=== PATIENT | male | born 1995 | race Two or more races ===

== ENCOUNTER 2019-10-11 08:47 | Inpatient (IN) | payer MEDICAID, OTHER ==
[~2019-10-11] VITALS: Ht 182.9 cm; Wt 80.3 kg
[2019-10-11] MEDS ORDERED: DOXYCYCLINE 100 MG TAB/CAP PO ONE (10:00)
[2019-10-11] MEDS ORDERED: DexAMETHasone SOD PHOS 10MG/1ML VIAL INJ IM ONE (10:00)
[2019-10-11 10:48] LABS: Basophils # (auto) 0.1 10 ^3/uL (0-0.2); Basophils % (auto) 0.7 % (0.0-2.0); Eosinophils # (auto) 0 10 ^3/uL (0-0.8); Hematocrit 41.5 % (41.0-53.0); Hemoglobin 13.2 g/dL (13.5-17.5); Lymphocytes # (auto) 0.5 10 ^3/uL (0.4-5.4); Lymphocytes % (auto) 4.8 % (10.0-50.0); Mean Corpuscular Hemoglobin 27.6 pg (28.0-32.0); Mean Corpuscular Hgb Conc. 31.7 g/dL (32.0-36.0); Monocytes # (auto) 0.7 10 ^3/uL (0-1.3); Monocytes % (auto) 7.2 % (0.0-12.0); Neutrophils # (auto) 8.9 10 ^3/uL (1.6-8.6); Neutrophils % (auto) 87.3 % (37.0-80.0); Nucleated Red Blood Cells % 0.1 %; Platelet Count (auto) 444 10^3/uL (140-450); Red Blood Cells 4.77 10^6/uL (4.5-5.90); Red Cell Distribution Width 14.5 % (11.8-14.3); White Blood Cell 10.2 10^3/uL (4.4-10.8)
[2019-10-11 11:05] LABS: Albumin 3.6 g/dL (3.4-5.0); Calcium 9.9 mg/dL (8.5-10.1); Potassium 4.1 mmol/L (3.5-5.1)
[2019-10-11 11:09] LABS: BUN/Creatinine Ratio 10.5; Bilirubin, Total 0.4 mg/dL (0.2-1.0); Total Protein 8.6 g/dL (6.4-8.2)
[2019-10-11] MEDS ORDERED: InsuLIN R (HUMAN) 100 UNITS in SODIUM CHL 0.9% 99 ML IV SCH ×2 (11:36→18:30)
[2019-10-11] MEDS ORDERED: INSULIN LANTUS (GLARGINE) 1 /0.01ml (100units/ml) SC ONE (11:45)
[2019-10-11] MEDS ORDERED: DEXTROSE (50%) 50ML SYRG IV PRN ×3 (11:45→18:15)
[2019-10-11 13:27] LABS: Magnesium 2.8 mg/dL (1.6-2.6); Phosphorus 4.8 mg/dL (2.5-4.90)
[2019-10-11] MEDS: ACCU-CHEK COMFORT CURVE STRIP VI SCH ×8 (13:30→23:20)
[2019-10-11] MEDS ORDERED: SODIUM CHLORIDE 0.9% 1,000 ML IV SCH (15:36)
[2019-10-11] MEDS ORDERED: cefTRIAXone 1GM/50ML D5W 50 ML IV ONE ×2 (16:30→16:45)
[2019-10-11] MEDS ORDERED: NITROGLYCERIN 0.4 MG SL TAB SL PRN (16:45)
[2019-10-11] MEDS ORDERED: PROMETHAZINE HCL 25 MG/ML 1ML IV PRN (16:45)
[2019-10-11] MEDS ORDERED: traMADol HCL 50 MG TAB PO PRN (16:45)
[2019-10-11] MEDS ORDERED: MORPHINE SULF INJ 2 MG/ML SYRINGE 1ML IV PRN (16:45)
[2019-10-11] MEDS: SODIUM CHLORIDE 0.9% 1,000 ML IV SCH ×4 (16:51→17:06)
[2019-10-11 20:54] LABS: Urine WBC None Seen /hpf (0 - 3)
[2019-10-11 21:07] LABS: Urine Bacteria NONE SEEN /hpf (None Seen); Urine Blood Negative /uL (Negative); Urine Hyaline Cast FEW /lpf (0 - 2); Urine Specific Gravity 1.018 (1.001-1.035)
[2019-10-11 21:30] LABS: Amphetamine Screen, Urine NEGATIVE (NEGATIVE); Barbiturate Scree,Urine NEGATIVE (NEGATIVE); Benzodiazephine Screen, Urine NEGATIVE (NEGATIVE); Cannabinoid Screen, Urine NEGATIVE (NEGATIVE); Cocaine Screen, Urine NEGATIVE (NEGATIVE); Opiate Scree,Urine NEGATIVE (NEGATIVE); Phencyclidine Screen, Urine NEGATIVE (NEGATIVE)
[2019-10-12] MEDS: ACCU-CHEK COMFORT CURVE STRIP VI SCH ×12 (00:22→20:15)
[2019-10-12] MEDS: SODIUM CHLORIDE 0.9% 1,000 ML IV SCH ×4 (00:22→16:40)
[2019-10-12 05:38] LABS: Potassium 3.8 mmol/L (3.5-5.1)
[2019-10-12 05:43] LABS: BUN/Creatinine Ratio 15.8; Calcium 8.5 mg/dL (8.5-10.1)
[2019-10-12 06:47] LABS: Basophils # (auto) 0.1 10 ^3/uL (0-0.2); Basophils % (auto) 0.5 % (0.0-2.0); Eosinophils # (auto) 0 10 ^3/uL (0-0.8); Hematocrit 35.8 % (41.0-53.0); Hemoglobin 11.9 g/dL (13.5-17.5); Lymphocytes # (auto) 1.8 10 ^3/uL (0.4-5.4); Lymphocytes % (auto) 14.3 % (10.0-50.0); Mean Corpuscular Hemoglobin 28.4 pg (28.0-32.0); Mean Corpuscular Hgb Conc. 33.2 g/dL (32.0-36.0); Mean Corpuscular Volume 85.7 fL (80.0-100.0); Monocytes # (auto) 1.5 10 ^3/uL (0-1.3); Monocytes % (auto) 11.6 % (0.0-12.0); Neutrophils # (auto) 9.4 10 ^3/uL (1.6-8.6); Neutrophils % (auto) 73.6 % (37.0-80.0); Nucleated Red Blood Cells % 0.1 %; Platelet Count (auto) 392 10^3/uL (140-450); Red Blood Cells 4.18 10^6/uL (4.5-5.90); White Blood Cell 12.8 10^3/uL (4.4-10.8)
[2019-10-12 07:45] LABS: Albumin 2.9 g/dL (3.4-5.0); Amylase 33 U/L (25-115); BUN/Creatinine Ratio 14.4; Calcium 8.6 mg/dL (8.5-10.1); Lipase 39 U/L (73-393)
[2019-10-12 07:48] LABS: Bilirubin, Total 0.2 mg/dL (0.2-1.0); HDL Cholesterol 43 mg/dL (40-59); LDL Cholesterol 152 mg/dL (< 100); Total Protein 7.2 g/dL (6.4-8.2); Triglycerides 249 mg/dL (< 150)
[2019-10-12 07:55] LABS: Cholesterol 233 mg/dL (< 200)
[2019-10-12] MEDS ORDERED: INSULIN LANTUS (GLARGINE) 1 /0.01ml (100units/ml) SC SCH (10:00)
[2019-10-12] MEDS: cefTRIAXone 1GM/50ML D5W 50 ML IV SCH (11:00)
[2019-10-12] MEDS: PANTOPRAZOLE 40 MG TAB PO SCH (11:01)
[2019-10-12] MEDS: ENOXAPARIN SOD 40 MG/0.4 ML SYRINGE SC SCH (11:02)
--- NOTE | 2019-10-12 11:43 | NUR ---
Pt Arrived on Unit Pt arrived on unit from ED. Pt brought to floor via wheelchair and was able to ambulate to bed with no difficulty. Pt is a/ox4 with no s/s of distress or SOB. Safety measures initiated with call light within reach, bed in lowest position and side rails up. Will continue to monitor.
[2019-10-12 12:04] VITALS: BP 139/85
[2019-10-12] MEDS ORDERED: INSLANTI SC (12:13)
[2019-10-12] MEDS ORDERED: INSLISPI SC (12:13)
[2019-10-12 13:00] VITALS: BP 139/85
[2019-10-12 14:03] VITALS: BP 139/85
--- NOTE | 2019-10-12 16:08 | NUR ---
Elevated Blood Sugar BS of 414 assessed. Rechecked BS, 427. Paged regarding elevated BS levels. Pt is currently asymptomatic at this time. Will continue to monitor. Addendum: 10/12/19 at 1611 by BALDEMAR LARIOS RN RN paged back. Made aware, stated he would input new orders. Will continue to monitor.
[2019-10-12] MEDS ORDERED: InsuLIN REG 1unit/0.01ml Soln (100units/ml) IV ONE (16:15)
[2019-10-12] MEDS ORDERED: INSULIN LANTUS (GLARGINE) 1 /0.01ml (100units/ml) SC ONE (16:15)
[2019-10-12] MEDS ORDERED: DEXTROSE (50%) 50ML SYRG IV PRN (16:15)
[2019-10-12 17:41] VITALS: BP 129/81
--- NOTE | 2019-10-12 19:15 | NUR ---
Opening shift note Assumed care of patient who is A&OX4. Respirations even and non-labored with no s/s of distress. Discussed POC with patient who verbalized understanding. Bed in lowest locked position with 2 side rails up. Call light within reach. Will continue to monitor.
[2019-10-12] MEDS: InsuLIN REG 1unit/0.01ml Soln (100units/ml) SC SCH (20:18)
--- NOTE | 2019-10-12 20:50 | NUR ---
Received call from patients family Mother of patient, Alona, called with questions regarding her sons release from the hospital.
[2019-10-12] MEDS: ACETAMINOPHEN 500 MG TAB PO PRN (21:38)
--- NOTE | 2019-10-12 21:47 | NUR ---
Patient temp. 101.8 Administered Tylenol per EMAR. Will continue to monitor.
[2019-10-12 22:00] VITALS: BP 133/88
[2019-10-12] MEDS: BUDESONIDE (INHALATION) 0.5 MG/2 ML NEB NEB SCH (22:50)
[2019-10-12] MEDS: INSULIN LANTUS (GLARGINE) 1 /0.01ml (100units/ml) SC SCH (22:59)
--- NOTE | 2019-10-12 23:30 | NUR ---
Temperature check 100.5
[2019-10-13] MEDS: ACCU-CHEK COMFORT CURVE STRIP VI SCH ×7 (00:09→22:59)
[2019-10-13] MEDS: SODIUM CHLORIDE 0.9% 1,000 ML IV SCH ×3 (00:19→17:10)
[2019-10-13] MEDS: InsuLIN REG 1unit/0.01ml Soln (100units/ml) SC SCH ×6 (04:00→20:26)
--- NOTE | 2019-10-13 05:00 | NUR ---
Temperature check 99.1. Patient resting without s/s of distress. Will continue to monitor.
[2019-10-13] MEDS: INSULIN LANTUS (GLARGINE) 1 /0.01ml (100units/ml) SC SCH ×2 (06:38→23:04)
--- NOTE | 2019-10-13 07:03 | NUR ---
Closing shift note Patient resting, respirations even and non-labored without s/s of distress. Endorsed care to day RNBryce.
[2019-10-13 07:12] VITALS: BP 138/76
[2019-10-13] MEDS: BUDESONIDE (INHALATION) 0.5 MG/2 ML NEB NEB SCH ×2 (07:58→22:10)
--- NOTE | 2019-10-13 07:58 | NUR ---
RT NOTE: PULMICORT TX HELD DUE TO PT NOT BEING IN NEGATIVE PRESSURE ROOM. WILL CONTINUE TO MONITOR.
[2019-10-13 08:00] VITALS: BP 148/86
[2019-10-13 09:00] VITALS: BP 148/86
[2019-10-13] MEDS: cefTRIAXone 1GM/50ML D5W 50 ML IV SCH (09:01)
[2019-10-13] MEDS: PANTOPRAZOLE 40 MG TAB PO SCH (09:01)
[2019-10-13] MEDS: ENOXAPARIN SOD 40 MG/0.4 ML SYRINGE SC SCH (09:02)
[2019-10-13 13:00] VITALS: BP 136/84
[2019-10-13 14:50] LABS: Basophils # (auto) 0.1 10 ^3/uL (0-0.2); Basophils % (auto) 0.7 % (0.0-2.0); Eosinophils # (auto) 0 10 ^3/uL (0-0.8); Eosinophils % (auto) 0.1 % (0.0-7.0); Hematocrit 35.3 % (41.0-53.0); Hemoglobin 11.7 g/dL (13.5-17.5); Lymphocytes # (auto) 1.3 10 ^3/uL (0.4-5.4); Lymphocytes % (auto) 14.1 % (10.0-50.0); Mean Corpuscular Hemoglobin 28.4 pg (28.0-32.0); Mean Corpuscular Hgb Conc. 33.2 g/dL (32.0-36.0); Mean Corpuscular Volume 85.5 fL (80.0-100.0); Monocytes % (auto) 10.8 % (0.0-12.0); Neutrophils # (auto) 6.9 10 ^3/uL (1.6-8.6); Neutrophils % (auto) 74.3 % (37.0-80.0); Platelet Count (auto) 338 10^3/uL (140-450); Red Blood Cells 4.12 10^6/uL (4.5-5.90); Red Cell Distribution Width 14.3 % (11.8-14.3); White Blood Cell 9.3 10^3/uL (4.4-10.8)
--- NOTE | 2019-10-13 16:28 | NUR ---
PT REQUESTING BLOOD SUGAR CHECK UPON ASSESSMENT PT IS ALERT AND ORIENTED X4. WHEN ASKED WHAT SYMPTOMS PATIENT IS HAVING PT STATES "I FEEL REALLY WEAK". BLOOD GLUCOSE RESULTS 58. PT GIVEN TWO JUICES AND WILDER CRACKERS. RN WILL REASSESS BLOOD SUGAR IN 15 MINUTES.
[2019-10-13 17:00] VITALS: BP 144/85
--- NOTE | 2019-10-13 19:25 | NUR ---
Opening shift note Assumed care of patient who is A&Ox4 sitting up finishing dinner with no s/s of distress or SOB. Discussed POC with patient who verbalized understanding. Bed in lowest locked position with 2 side rails up, call light within reach, will continue to monitor.
[2019-10-13] MEDS: ACETAMINOPHEN 500 MG TAB PO PRN (21:10)
--- NOTE | 2019-10-13 21:15 | NUR ---
TEMPERATURE 100.9 Administered Tylenol per EMAR. Will continue to monitor.
[2019-10-13 22:00] VITALS: BP 144/82
--- NOTE | 2019-10-13 22:20 | NUR ---
TEMP. CHECK 99.1 Patient without c/o pain or discomfort at this time, will continue to monitor.
[2019-10-14] MEDS: SODIUM CHLORIDE 0.9% 1,000 ML IV SCH ×2 (03:05→08:27)
[2019-10-14] MEDS: InsuLIN REG 1unit/0.01ml Soln (100units/ml) SC SCH ×4 (04:00→12:00)
[2019-10-14] MEDS: ACCU-CHEK COMFORT CURVE STRIP VI SCH ×3 (04:18→12:00)
[2019-10-14 05:20] VITALS: BP 120/50
[2019-10-14] MEDS: INSULIN LANTUS (GLARGINE) 1 /0.01ml (100units/ml) SC SCH (06:23)
[2019-10-14 08:00] VITALS: BP 151/79
[2019-10-14] MEDS: cefTRIAXone 1GM/50ML D5W 50 ML IV SCH (08:27)
[2019-10-14] MEDS: PANTOPRAZOLE 40 MG TAB PO SCH (09:27)
[2019-10-14] MEDS: ENOXAPARIN SOD 40 MG/0.4 ML SYRINGE SC SCH (09:28)
[2019-10-14 09:40] VITALS: BP 151/79
--- NOTE | 2019-10-14 12:28 | NUR ---
Est energy needs [id number] kcal (25-27 kcal/kg 80.3kg) Est protein needs 48-60g (0.6-0.75g/kg 80.3kg, elevated RFTs, diabetic nephropathy no HD) Will reassess prn. Addendum: 10/14/19 at [address] Amended: Links added.
[2019-10-14 12:45] VITALS: BP 151/87
[2019-10-14] MEDS ORDERED: ZINC SULFATE 220mg CAP or TAB PO ONE (13:15)
[2019-10-14] MEDS ORDERED: CHOLECALCIFEROL (VITD3) 1,000UNIT=25mCg TAB PO ONE (13:15)
[2019-10-14] MEDS ORDERED: DEXTROSE (50%) 50ML SYRG IV PRN (13:15)
[2019-10-14] MEDS ORDERED: DOXYCYCLINE 100 MG TAB/CAP PO ONE (13:15)
[2019-10-14] MEDS ORDERED: ASCORBIC ACID 500 MG TAB PO ONE (13:15)
[2019-10-14] MEDS ORDERED: ASCO500T11 PO (14:51)
[2019-10-14] MEDS ORDERED: CHOL1000 PO (14:51)
[2019-10-14] MEDS ORDERED: DOX100T PO (14:51)
[2019-10-14] MEDS ORDERED: LISI-285 PO (14:52)
[2019-10-14] MEDS ORDERED: ALBUAER3 IN (15:01)
[2019-10-14 16:44] VITALS: BP 144/83
[2019-10-14] MEDS ORDERED: METH4PAK PO (16:47)
[2019-10-14] MEDS ORDERED: ACCU-CHEK COMFORT CURVE STRIP VI SCH (17:00)
[2019-10-14] MEDS ORDERED: InsuLIN REG 1unit/0.01ml Soln (100units/ml) SC SCH (17:00)
--- NOTE | 2019-10-14 18:18 | NUR ---
PATIENT DISCHARGING HOME WITH FAMILY. ALL IV ACCESS DISCONTINUED. TELEMETRY BOX REMOVED AND RETURNED TO TELEMETRY DEPARTMENT. ALL DISCHARGE INSTRUCTIONS GIVEN. ALL DISCHARGE PAPERWORK SIGNED.
--- NOTE | 2019-10-14 18:43 | NUR ---
PATIENT DISCHARGED HOME
[2019-10-14] MEDS ORDERED: DOXYCYCLINE 100 MG TAB/CAP PO SCH (22:00)
[2019-10-14] MEDS ORDERED: PULMICORT 180 MCG FLEXHALER INH SCH (22:00)
[2019-10-15] MEDS ORDERED: CHOLECALCIFEROL (VITD3) 1,000UNIT=25mCg TAB PO SCH (10:00)
[2019-10-15] MEDS ORDERED: ZINC SULFATE 220mg CAP or TAB PO SCH (10:00)
[2019-10-15] MEDS ORDERED: ASCORBIC ACID 500 MG TAB PO SCH (10:00)
== END 2019-10-14 18:45 | disposition home or self-care (01) | DRG 720 ==
LOC: ER 08:47 → TELE 08:48 → TELE-E-ADS 10-12 11:40
PROVIDERS: ADMIT Internal Medicine; ATTEND Internal Medicine
DX: A41.89 Other specified sepsis (principal); U07.1 COVID-19; N18.3 Chronic kidney disease, stage 3 (moderate); N17.0 Acute kidney failure with tubular necrosis; J96.00 Acute respiratory failure, unspecified whether with hypoxia or hypercapnia; J12.89 Other viral pneumonia; I12.9 Hypertensive chronic kidney disease with stage 1 through stage 4 chronic kidney disease, or unspecified chronic kidney disease; Z79.4 Long term (current) use of insulin; E78.5 Hyperlipidemia, unspecified; E10.10 Type 1 diabetes mellitus with ketoacidosis without coma; E10.22 Type 1 diabetes mellitus with diabetic chronic kidney disease; E86.0 Dehydration
CPT/HCPCS: 36415; 36600; 71045; 71046; 80048; 80053; 80061; 80307; 81001; 82010; 82150; 82805; 82962; 83036; 83690; 83735; 83930; 84100; 85025; 85652; 87086; 87804; 87880; 96361; 96365; 96372; 99291; G0378; J0696; J1100; J1815